=== PATIENT | female | born 1975 | race African-American/Black ===

== ENCOUNTER 2016-12-31 08:15 | Emergency (ER) | payer OTHER | END 2016-12-31 09:07 | disposition home or self-care (01) | LOC: CED 08:15 | DX: J44.1 Chronic obstructive pulmonary disease with (acute) exacerbation (principal); G56.01 Carpal tunnel syndrome, right upper limb; I11.0 Hypertensive heart disease with heart failure; I50.9 Heart failure, unspecified; D86.9 Sarcoidosis, unspecified; F17.200 Nicotine dependence, unspecified, uncomplicated; Z98.51 Tubal ligation status; Z90.49 Acquired absence of other specified parts of digestive tract; Z88.1 Allergy status to other antibiotic agents | CPT/HCPCS: 29125; 99284 ==